=== PATIENT | male | born 1965 | race African-American/Black ===

== ENCOUNTER 2019-04-06 06:35 | Day surgery (SDC) | payer BC ==
[2019-04-06] VITALS (10 sets, daily range): BP systolic 117–143; BP diastolic 62–96; Ht 165.1 cm; Wt 56.8 kg
[~2019-04-06] VITALS: Ht 165.1 cm; Wt 56.8 kg
[2019-04-06] MEDS ORDERED: MEDROL DOSE PACK4 MG PO (07:14)
[2019-04-06] MEDS ORDERED: MOBIC7.5 MG PO (07:17)
[2019-04-06] MEDS ORDERED: TYLENOL W/CODEI1 TAB (07:17)
[2019-04-06] MEDS ORDERED: CYCLOBENZAPRINE10 MG PO (07:18)
[2019-04-06] MEDS ORDERED: HYDROCODON-ACE1 EAC7 PO (07:19)
--- NOTE | 2019-04-06 12:06 | NUR ---
UPON FURTHER ASSESSMENT PATIENT DENIES NUMBNESS/TINGLING TO EXTREMITIES. INSURANCE FOLLOW UP REP ARE EQUAL. SENSATIONS ARE INTACT.
--- NOTE | 2019-04-06 12:54 | NUR ---
RECEIVED PT FROM RECOVERY NO NEEDS VOICED, PT IS STABLE CONTINUE WITH PLAN OF CARE FAMILY AT BEDSIDE
--- NOTE | 2019-04-06 14:00 | NUR ---
ASSESSMENT PER ADMIT PACK. PT IS WITHOUT SIGNS OF DISTRESS.FAMILY AT BEDSIDE.CALL LIGHT IN REACH.
--- NOTE | 2019-04-06 16:19 | OP ---
PATIENT NAME: GA PRINCE MEDICAL RECORD: [id number] :61 LOCATION:[id number] ADMISSION DATE: SURGEON: MELCHOR OROPEZA MD DATE OF OPERATION: 04/06/2019 PREOPERATIVE DIAGNOSES: Cervical myelopathy and left C5 radiculopathy secondary to disc herniation and osteophyte formation at C4-C5. POSTOPERATIVE DIAGNOSES: Cervical myelopathy and left C5 radiculopathy secondary to disc herniation and osteophyte formation at C4-C5. SURGEON: Melchor Oropeza MD PROCEDURE: Anterior cervical discectomy and fusion with PEEK interbody cage, separate anterior cervical plate and screws, PEEK interbody allograft with bone stem cells, removal of osteophytes. DESCRIPTION AND TECHNIQUE: After induction of general endotracheal anesthesia, the patient was positioned supine on the operating table. Neck was prepped and draped in usual sterile fashion. Fluoroscopic x-ray and freer localized the C4-C5 interspace. After infiltration of 1:100,000 epinephrine and 1% lidocaine, a transverse skin incision was carried out from the midline to the sternocleidomastoid muscle. The platysma was divided with 15-blade. Using blunt and sharp dissection with Metzenbaum scissors, I proceeded in avascular plane medial to the carotid sheath. The C4-C5 interspace was identified with fluoroscopic x-ray and a spinal needle. The longus colli muscles were elevated from the bodies of C4 and C5. A self-retaining retractor was placed deep to the longus colli muscles. [place] distracting pins were placed in the bodies of C4 and C5. The disc space was incised under distraction. The disc material was removed from the interspace with pituitary rongeurs and curettes. The posterior longitudinal ligament was removed with Cloward rongeurs using a 2 mm punch. There was an obvious disc herniation within the left C4-C5 foramen. This was removed with pituitary rongeurs and nerve hooks. The dura was completely decompressed at the conclusion of this. A PEEK interbody cage was placed in the disc space under distraction. Prior to this, it was filled with Ana bone allograft with bone stem cells. A separate anterior cervical plate and screws was used to span the C4-C5 interspace. Self-drilling screws were placed in the holes and plate. Locking cams were tightened down over the screw heads. Good position of the hardware was confirmed with fluoroscopic x-ray. The wound was irrigated with copious amounts of Ancef irrigant solution. The platysma was closed with 3-0 Vicryl suture. The subdermal layer was closed with 3-0 Vicryl suture. The skin was reapproximated with Steri-Strips and benzoin. A sterile dressing was applied to the wound. The patient was awakened in good condition and taken to recovery. All counts were reported as correct. Estimated blood loss was minimal. TRANSINT:[id number] Voice Confirmation ID: [id number] DOCUMENT ID: [id number] OPERATIVE REPORT [id number] GA PRINCE JOHN MD at 1619 CC: [id number] DICTATION DATE: 04/06/19 1140 G[employer] CHOPPER: 04/06/19 1215 [facility] [address] [place] [address]
--- NOTE | 2019-04-06 17:12 | NUR ---
PAIN MEDS ORDERED PER JUN.CL TRAY HERE.MONITOR FOR NEEDS.FAMILY AT BEDSIDE.
--- NOTE | 2019-04-06 19:35 | NUR ---
PT SITTING UP IN BED WITHOUT DISTRESS, AOX4. IV RIGHT FA INFUSING D5 1/2NS @ 50. INCISION TO LEFT NECK CDI. STATES PAIN 8/10. WILL GIVE PAIN MEDS ORDERED. PROVIDED ICE WATER. DENIES OTHER NEEDS. CL IN REACH, WILL CTM
--- NOTE | 2019-04-06 19:50 | NUR ---
PT NAUSEOUS AND VOMITING INTO TRASH CAN. PROVIDED ICE WATER. PT THINKS NORCO ON EMPTY STOMACH CAUSED NAUSEA. GAVE ZOFRAN ORDERED. GAVE MORPHINE FOR PAIN. PROVIDED ICE PACK TO NECK. EDUCATED PT ON KEEPING HOB ELEVATED. DENIES OTHER NEEDS. CL IN REACH, WILL CTM
[2019-04-07] VITALS: BP 125/71
[2019-04-07 04:00] VITALS: BP 141/79
[2019-04-07 08:02] VITALS: BP 139/72
--- NOTE | 2019-04-07 10:00 | NUR ---
ASSESSMENT PER FLOW SHEET. PT IS WITHOUT DISTRESS.COMPLAINS OF SORE THROAT.MONITOR FOR NEEDS.
[2019-04-07] MEDS ORDERED: MEDROL DOSE PACK4 MG PO (10:52)
[2019-04-07] MEDS ORDERED: ZOFRAN ODT4 MG/UDTAB PO (10:52)
[2019-04-07] MEDS ORDERED: HYDROCODON-ACE1 EA10 PO (10:54)
--- NOTE | 2019-04-07 13:36 | NUR ---
DISCHARGE INSTRUCTIONS,STATES UNDERSTANDING.I DCD WITH CATH TIP INTACT
--- NOTE | 2019-04-07 13:37 | NUR ---
LEFT UNIT FOR TRANSPORT HOME. FAMILY AT SIDE
== END 2019-04-07 13:38 | disposition home or self-care (01) ==
LOC: D.MS 06:35 → D.OPS 06:35 → D.MS 12:13 → D.OPS 04-07 13:38
PROVIDERS: ATTEND Neurological Surgery
DX: G95.89 Other specified diseases of spinal cord (principal); M54.12 Radiculopathy, cervical region; G95.20 Unspecified cord compression; M54.2 Cervicalgia; M62.81 Muscle weakness (generalized)